=== PATIENT | female | born 1995 | race Caucasian/White ===

== ENCOUNTER 2018-04-20 13:04 | Emergency (ER) | payer MEDICAID ==
[~2018-04-20] VITALS: Ht 167.6 cm; Wt 60.8 kg
[2018-04-20 13:10] VITALS: Ht 167.6 cm; Wt 60.8 kg
[2018-04-20 16:24] VITALS: BP 146/82
== END 2018-04-20 16:24 | disposition short-term general hospital (02) ==
LOC: ED 13:04
DX: O80 Encounter for full-term uncomplicated delivery (principal); Z37.0 Single live birth; Z88.0 Allergy status to penicillin
CPT/HCPCS: 82962; J2590; J7030